=== PATIENT | female | born 1950 | race Caucasian/White ===

== ENCOUNTER → 2019-01-24 15:35 | Outpatient (CLI) | payer MEDICARE, BC, SELFPAY ==
--- NOTE | 2019-01-24 15:35 | FLU_PTH ---
PATIENT: KINJAL CARMONA LOC: [facility] U#:[id number] AGE/SX: 75/F ROOM: RE01/24/[address]: Dr. Gloria Penn MD : 1950 BED: DIS: SPEC #: [id number] RECD: 01/24/19 17:02 STATUS: HOLLY KARTHIK #: [id number] ARMAND: 01/24/19 15:[address]: Gloria Penn DEPT: CYTOLOGY RECD BY: [place] ENTERED: 01/27/19 12:02 SP TYPE: Fluid OTHR DR: Dr. Ronit Solano MD Tissues: A - Thyroid gland, NOS B - Thyroid gland, NOS Procedures: Special Stain Group II Surgery Specimen Level IV Cytospin Fluid Cytology Other HEADER OPERATION: Ultrasound-guided fine needle aspiration right thyroid PRE-OP DIAGNOSIS: Thyroid nodules TISSUE SUBMITTED: A - FNA right thyroid fluid for cytology, B - FNA right thyroid, 4 slides DIAGNOSIS CYTOLOGY A. Right thyroid nodule fluid for cytology, ultrasound-guided FNA (cytospin and cell block): A few benign follicular cells are noted. B. Right thyroid nodule, ultrasound-guided FNA (smears): Suggestive of benign colloid nodule. See cytology study and comment. RUTH:hali 01/28/19 COMMENT Correlation with clinical, radiologic findings and appropriate follow up are necessary. CYTOLOGY STUDY Slides are reviewed. B. The specimen consists of diluted colloid and a few benign follicular cells. The specimen is limited in evaluation due to lack of adequate number of follicular cells. CYTOLOGY GROSS A - Received is 20 ml of brown cloudy fluid labeled with the patient's name and and designated per the requisition as right thyroid. Submitted for cytology preparation including cell block. B - Received are four smears labeled with the patient's name and designated per the requisition as right thyroid. Submitted for staining. / hali 01/27/19 TC:5 CPT: 15232, 68456, 48222
== END ==
PROVIDERS: Referring Provider Surgery; Visit Provider Surgery
DX: E04.1 Nontoxic single thyroid nodule (principal)
CPT/HCPCS: 88108; 88161; 88305; 88313